=== PATIENT | female | born 1980 | race American Indian/Alaskan Native ===

== ENCOUNTER 2017-10-11 19:44 | Emergency (ER) | payer BC ==
[2017-10-11 20:25] VITALS: BP 126/68
[2017-10-11 20:53] LABS: Basophils # (Auto) 0.1 K/mm3 (0.0-0.1); Basophils % (Auto) 0.8 % (0.0-1.8); Eosinophils # (Auto) 0.1 K/mm3 (0.0-0.4); Eosinophils % (Auto) 0.7 % (0.0-4.3); Hematocrit 36.7 % (30.3-42.9); Hemoglobin 11.7 gm/dl (10.1-14.3); Lymphocytes # (Auto) 3.4 K/mm3 (1.2-5.4); Lymphocytes % (Auto) 30.5 % (13.4-35.0); Mean Corpuscular HGB Conc 32 % (30-34); Mean Corpuscular Hemoglobin 27 pg (28-32); Mean Corpuscular Volume 85 fl (79-97); Monocytes # (Auto) 0.8 K/mm3 (0.0-0.8); Monocytes % (Auto) 7.2 % (0.0-7.3); Platelet Count 279 K/mm3 (140-440); Red Cell Distribution Width 14.7 % (13.2-15.2)
[2017-10-11 21:32] LABS: Bilirubin,Urine NEG (Negative); Blood,Urine NEG (Negative); Color,Urine Yellow (Yellow); Mucus,Urine FEW /HPF; Protein,Urine <15 mg/dL mg/dL (Negative)
--- NOTE | 2017-10-12 00:42 | Ultrasound Report ---
FINAL REPORT EXAM: US OB < = 14 WEEKS FETUS HISTORY: 12 weeks , vaginal bleeding TECHNIQUE: Real-time sonography was performed of the gravid uterus transabdominally and images are submitted for interpretation. PRIORS: None. FINDINGS: The uterus appears normal and has a grossly normal appearing gestational sac. There is a normal appearing pole measuring 5.36 centimeters for an estimated gestational age of 12 weeks 0 days. The heart is beating at a rate of 156 beats per minute. Both ovaries are visualized and appear normal. The right ovary measures 2.8 x 2.1 x 3.0 cm and the left ovary measures 1.9 x 1.2 x 1.8. Right ovary has a small prominent follicle or corpus luteal cyst. IMPRESSION: Single live intrauterine gestation, estimated gestational age 12 weeks 0 days for an estimated confinement of 04/25/2018
--- NOTE | 2017-10-12 00:42 | Ultrasound Report ---
FINAL REPORT EXAM: US OB TRANSVAGINAL HISTORY: 15 weeks , vaginal bleeding quantitative beta HCG [id number] TECHNIQUE: Real-time sonography was performed of the gravid uterus endovaginally and images are submitted for interpretation. PRIORS: None. FINDINGS: The uterus appears normal and has a grossly normal appearing gestational sac. There is a normal appearing pole measuring 5.36 centimeters for an estimated gestational age of 12 weeks 0 days. A normal-appearing yolk sac is identified. The heart is beating at a rate of 156 beats per minute. Both ovaries are visualized and appear normal. The right ovary measures 2.8 x 2.1 x 3.0 cm and the left ovary measures 1.9 x 1.2 x 1.8. Right ovary has a small prominent follicle or corpus luteal cyst. IMPRESSION: Single live intrauterine gestation, estimated gestational age 12 weeks 0 days for an estimated confinement of 04/25/2018
== END 2017-10-11 21:07 | disposition left against medical advice (07) ==
LOC: ED 19:44
DX: O21.9 Vomiting of pregnancy, unspecified (principal); Z3A.12 12 weeks gestation of pregnancy; Z53.21 Procedure and treatment not carried out due to patient leaving prior to being seen by health care provider
CPT/HCPCS: 36415; 76801; 76817; 81001; 84702; 85025; 86850; 86900; 86901